=== PATIENT | female | born 1990 | race Caucasian/White ===

== ENCOUNTER 2018-07-14 14:29 | Emergency (ER) | payer BC, OTHER ==
[~2018-07-14] VITALS: Ht 165.1 cm; Wt 104.8 kg
[~2018-07-14 14:29] MED LIST: CEPH250C16 PO; HYDR2TAB6 PO; ONDA8TAB PO
[2018-07-14 14:36] VITALS: BP 127/81
[2018-07-14 15:30] VITALS: BP 125/83
[2018-07-14 15:45] LABS: APPEARANCE,URINE HAZY (CLEAR); BILIRUBIN,URINE NEGATIVE (NEGATIVE); BLOOD, URINE 3+ (NEGATIVE); COLOR,URINE YELLOW (YELLOW); LEUKOCYTE ESTERASE ,URINE NEGATIVE (NEGATIVE); NITRITE, URINE NEGATIVE (NEGATIVE); UGLUCOSE NEGATIVE (NEGATIVE)
[2018-07-14 15:48] LABS: RBC,URINE 50-80 /HPF (0-5); WBC,URINE 0-5 (RARE) /HPF (0-5)
== END 2018-07-14 15:30 | disposition home or self-care (01) ==
LOC: MED 14:29
DX: R10.9 Unspecified abdominal pain (principal); R35.0 Frequency of micturition; R39.15 Urgency of urination; Z79.899 Other long term (current) drug therapy
CPT/HCPCS: 81001; 81025; 87086; 99284